=== PATIENT | male | born 1970 | race African-American/Black ===

== ENCOUNTER 2022-05-08 09:53 | Outpatient (CLI) | payer OTHER, SELFPAY ==
--- NOTE | 2022-05-08 10:03 | ECG_ITS ---
Measurements Intervals [place] Rate: 86 P: 63 OK: 143 QRS: -46 QRSD: 114 T: -10 QT: 350 QTc: 421 Interpretive Statements SINUS RHYTHM INCOMPLETE RIGHT BUNDLE BRANCH BLOCK LEFT ANTERIOR FASCICULAR BLOCK VOLTAGE CRITERIA FOR LVH ST-T WAVE ABNORMALITY IN INFERIOR LEADS- CONSIDER ISCHEMIA BASELINE ARTIFACT- I, V5 ABNORMAL ECG NO PREVIOUS ECG AVAILABLE FOR COMPARISON Electronically Signed On 05-08-2022 10:24:10 CDT by Srinivas Huffman D.O.
== END 2022-05-08 09:54 | disposition home or self-care (01) ==
LOC: ANHSURGERY 09:57
PROVIDERS: PCP Family Medicine; Visit Provider Surgery Plastic and Reconstructive Surgery
DX: I10 Essential (primary) hypertension (principal); Z01.818 Encounter for other preprocedural examination; I45.10 Unspecified right bundle-branch block; I44.4 Left anterior fascicular block
CPT/HCPCS: 93005

== ENCOUNTER 2022-05-10 01:49 | Day surgery (SDC) | payer OTHER, SELFPAY ==
[2022-05-04 09:38] VITALS: BMI 26.9
--- NOTE | 2022-05-04 09:43 | PC.NURSE ---
Report to the Outpatient Waiting Room, entrance under the green pavilion located off [facility], at time 11:30 on date 05/10/22. Planned Procedure Time: 1:30. Time changes happen often and if your time is changed the preop area will call you the afternoon before. - You and your visitor will be asked to self-screen and do not enter if you have any COVID symptoms. - We encourage only one visitor and NO visitors under age 16 are allowed at this time. Your visitor will receive communication by the phone number that is given day of service. - The patient visitor is requested to social distance or may leave the building when not with patient due to restrictions. - A mask is OPTIONAL within the hospital. Patients may have clear liquids (water, carbonated beverages, clear teas, apple juice) until 3 hours prior to surgery (10:30) with a maximum of 20 ounces. - No food from midnight until time of surgery Take the following medications with a SIP of water the morning of surgery: METOPROLOL, MERCAPTOPURINE (IF OK WITH DR. WHITLOCK) Medications to discontinue per physician: APRISO Date to take last dose: PER DR. WHITLOCK Please no make-up, nail pakistani, hairspray, perfume, deodorant, or body powder the day of surgery. No jewelry (including any body piercings) or valuables the day of surgery, leave them at home. Please take a shower or bath the night before, or the morning of, surgery with an antibacterial soap. Wear comfortable, loose fitting clothing. - Jewelry must be removed prior to entering the operating room. Rings and piercings that are not removed may be cut off. - The hospital will not accept responsibility for valuables. - Please leave all valuables, including medications, at home the day of surgery. If you are going home after surgery, a licensed delivery route driver must drive you home. - NO public transportation without another adult. - We recommend that an adult stay with you for 24 hours following discharge. - We also recommend that you do not drive, make important decision, drink alcoholic beverages, or take any drugs that were not prescribed by your health care provider for at least 24 hours after your discharge time. Follow any additional instructions given to you from your surgeon. If you or anyone in your household have experienced Covid symptoms in the past week, please notify your surgeon or the nurse liaison at the phone number below for possible testing. Telephone instructions given to PT - CHARLOTTE PAGE and asked if any additional questions and then verbalized understanding. Patient advised to call surgeon office or pre surgery nurse liaison [phone] if any additional questions.
[2022-05-10] VITALS (9 sets, daily range): BP systolic 145–159; BP diastolic 80–100; PULSE 73–90; RESP 12–18; TEMP 36.8–36.9; O2SAT 97–100
[2022-05-10] MEDS: LACTATED RINGERS 1,000 ML 30 ML IV CONT ×2 (11:54→15:06)
--- NOTE | 2022-05-10 12:10 | P.PNAN_ITS ---
Anes - Initial Pre Proc Eval Procedure: Operation Date: 05/10/22 13:30 Proposed Procedures p Treatment of Bilateral Gynecomastia - Germán Cheek MD Date/Time: 05/10/22 12:10 Surgeon: Germán Cheek MD Pre Op Diagnosis: Gynecomastia Patient Data Age: 51 Gender: M Height: 1.91 m Weight: 97.52 kg Allergies Allergy/AdvReac Type Severity Reaction Status Date / Time Gadolinium-Containing Allergy Unknown Hives Verified 05/04/22 09:35 Contrast Medi Home Medications Medication Instructions Recorded Confirmed Type lisinopril 10 mg tablet 10 mg PO DAILY 05/04/22 05/04/22 History mercaptopurine 50 mg tablet 50 mg PO DAILY 05/04/22 05/04/22 History mesalamine 0.375 gram 1.5 g PO DAILY 05/04/22 05/04/22 History capsule,extended release 24 hr (Apriso) metoprolol succinate 50 mg 100 mg PO DAILY 05/04/22 05/04/22 History tablet,extended release 24 hr Patient hx anesthesia problems: none Family hx anesthesia problems: none Results Review: All pre-operative results and documents have been reviewed as part of the pre- operative evaluation. REPLACED BY [facility] Past Medical History Medical History Hypertension Nonischemic cardiomyopathy JARED (obstructive sleep apnea) Surgical History Surgical History History of cardiac radiofrequency ablation Social History Social History Smoking status: Unknown if ever smoked Alcohol intake: never Substance use: never Substance use type: does not use Living arrangements: alone Spiritual care concerns: No Anes - Eval Final PreProcedure Day of Procedure 05/10/22 12:10 Patient weight: overweight Heart: regular rate and rhythm Lungs: clear to auscultation Airway: Mallampati scale class 1 Neurological: alert and oriented Last oral intake: >/= 8 hours ASA classification: III Emergent: no Anesthetic plan: proceed Anesthesia type and monitoring: general LMA and standard monitoring Results Review: All pre-operative results and documents have been reviewed as part of the pre- operative evaluation. Informed Consent: The patient's anesthetic plan and its attendant risks and benefits were discussed with the patient/family/POA. Questions were solicited and answers provided to the satisfaction of the patient/family/POA.
--- NOTE | 2022-05-10 12:20 | SUR.PREOP ---
ANY PRE OP DOCUMENTATION SHOWN CHARTED BY Everardo SAHA WAS DOCUMENTED BY Ani LING
--- NOTE | 2022-05-10 13:22 | W.PM.PROC2 ---
Procedure Note - Detailed Date of Procedure 05/10/22 Pre-op Diagnosis Gynecomastia Post-op Diagnosis Same Procedure Performed Treatment gynecomastia (excision / suction lipectomy) Surgeon Germán Cheek MD Anesthesia General Findings Lipoaspirate 450cc Description of Procedure Preoperatively the risks, benefits, alternatives were discussed in extensive detail. I wanted him to be very realistic about the risks involved as well as expectations. Made sure answered all of his questions to his satisfaction. He understands there is the risk of skin laxity and he may need a second-stage procedure at his cost which would involve placement of a scar. He would like proceed as above. All questions answered. He voiced a clear understanding. Consent obtained. He was marked in the preoperative holding area with his verification. He was taken to the operating room placed supine on the operating room table. Anesthesia provided by anesthesiology. Prepped and draped in a standard sterile fashion. Stab incision was made may proceed with a tumescent solution. Once adequate time for hemostasis a 15 blade used to make an incision along the inferior areola. The gynecomastia tissue was identified removed under direct visualization. I tailor tacked this into place. I then completed suction lipectomy based on S.A.F.E. technique in multiple in pain some passes using a 5 mm basket cannula. I sat him up to verify as well. This was based on preoperative planning, intraoperative observation, and rolling pinch test such is in full agreement. Port sites were closed with 4-0 nylon. I closed the inferior areola with 3-0 Monocryl followed by running subcuticular 4-0 Monocryl and tissue glue. Estimated Blood Loss 20 Drains No Packing No Pathology None sent Complications No immediate complications Condition Stable Disposition PACU
--- NOTE | 2022-05-10 13:30 | WPDHPUPDATE1 ---
History and Physical Update Update Date/Time: 05/10/22 13:30 History and Physical has been reviewed, including an updated exam of the patient. There are NO changes in the patient's condition. Risks, benefits, and alternatives have been discussed and questions answered. Patient agrees to proceed with procedure.
[2022-05-10] MEDS: ceFAZolin 2 GM/D5W 50 ML 2 GM/50 ML BAG IVPB (13:46)
[2022-05-10] MEDS: LACTATED RINGERS IRRIG 1,000 ML, LIDOCAINE HCL 1% LOCAL INJ 50 ML, EPINEPHrine HCL INJ ... INFILTRATE (13:59)
[2022-05-10] MEDS: fentaNYL CITRATE INJ (*CRX) 100 MCG/2 ML VIAL 25 MCG IV PUSH ×8 (15:37→16:55)
--- NOTE | 2022-05-10 15:39 | SUR.PHASEI ---
1538: Simple mask removed.
[2022-05-10] MEDS: oxyCODONE HCL (*CRX) 5 MG TAB IR PO (16:34)
== END 2022-05-10 17:40 | disposition home or self-care (01) ==
PROVIDERS: PCP Family Medicine; Visit Provider Surgery Plastic and Reconstructive Surgery
PROC: (CPT 19300; principal; 2022-05-10 13:30)
DX: N62 Hypertrophy of breast (principal); I10 Essential (primary) hypertension; I42.8 Other cardiomyopathies; G47.33 Obstructive sleep apnea (adult) (pediatric)
CPT/HCPCS: 15877; A9270; J0171; J0690; J1100; J2250; J2405; J2704; J3010; J7120